=== PATIENT | female | born 1950 | race Caucasian/White ===

== ENCOUNTER 2017-04-17 00:27 | Emergency (ER) | payer MEDICARE ==
[~2017-04-17] VITALS: Ht 167.6 cm; Wt 90.7 kg
[~2017-04-17 00:27] MED LIST: ANASTROZOLE1 MG PO; HYDROCODON-ACE1 EA12 PO; LIPITOR10 MG PO; LOVENOX40 MG/0.4 SC; NEURONTIN300 MG PO; PERCOCET 7.5-31 EACH PO; Z.0.AMITRIPTYLINE H7 PO; Z.0.GABAPENTIN300 MG PO
[2017-04-17] MEDS ORDERED: CYCLOBENZAPRINE HCL 10 MG TAB PO ONE (00:30)
--- OUTSIDE RECORDS SUMMARY | 2017-04-17 00:31 | XMS REPORT | Clinical Summary ---
Author Author [facility] Address Unknown Phone Unavailable Care Team Providers Care Cement And Concrete Plant Worker Name Role Phone Bhupendra Raman MD PCP Allergies Active Allergy Reactions Severity Noted Date Comments Codeine GI Intolerance 01/23/2017 Current Medications Prescription Sig. Disp. Refills Start End Date Status Date anastrozole (ARIMIDEX) 1 TK 1 T PO QD 1 11/05/19 Active mg chemo tablet 17 atorvastatin (LIPITOR) 10 01/15/20 Active MG tablet 17 amitriptyline (ELAVIL) 10 Take 10 mg by mouth Active MG tablet nightly. Active Problems Problem Noted Date Closed fracture of right femur 01/24/2017 Encounters Date Type Specialty Care Team Description 01/24/2017 Documentation Ortho Sports Medicine Joshua Barnett MD 01/23/2017 [facility] General Surgery Haydee Asif, Other closed fracture of - Encounter PA-C right femur, unspecified 01/24/2017 Joshua Block portion of femur, initial MD [place] encounter (Primary Dx) Artemio Barrera DO after 04/16/2016 Social History Tobacco Use Types Packs/Day Years Used Date Current Every Day Smoker Cigarettes 1 Smokeless Tobacco: Never Used Tobacco Cessation: Ready to Quit: No Alcohol Use Drinks/Week oz/Week Comments Yes MARGARITAS Sex Assigned at Date Recorded Not on file Last Filed Vital Signs Vital Sign Reading Time Taken Blood Pressure 184/86 01/24/2017 5:50 PM GREEN BUILDING ARCHITECT Pulse 98 01/24/2017 5:50 PM GREEN BUILDING ARCHITECT Temperature 36.9 C (98.5 F) 01/24/2017 11:37 AM GREEN BUILDING ARCHITECT Respiratory Rate 8 01/24/2017 5:50 PM GREEN BUILDING ARCHITECT Oxygen Saturation 97% 01/24/2017 11:37 AM GREEN BUILDING ARCHITECT Inhaled Oxygen - - Concentration Weight - - Height - - Body Mass Index - - Plan of Treatment Health Maintenance Due Date Last Done Comments PAP SMEAR 1973 COLONOSCOPY 2002 MAMMOGRAM 2002 ZOSTER VACCINE 2012 INFLUENZA VACCINE 10/03/2016 Implants Implanted Type Area Press Loader Device Expiration Model / Identifier Date Serial / Lot Breast Implants Cataract Implants Both Eyes Results * Estimated GFR (01/24/2017 12:02 PM) Component Value Ref Range GFR Non Af Amer >90 mL/min/1.73 m2 GFR Af Amer >90 mL/min/1.73 m2 Comment: Chronic kidney disease: <60 mL/min/1.73m2 Kidney failure: <15 mL/min/1.73m2 The estimated GFR is calculated from the IDMS-traceable Modification of Diet in Renal Disease Equation. The accuracy of the calculation is poor when the creatinine is normal. Calculated values >90 mL/min/1.73m2 are not reported. This equation has not been validated in children (<18 years), women, the elderly (>70 years), or ethnic groups other than Caucasians and Americans. Specimen Performing Laboratory Plasma specimen [facility] DEPARTMENT OF PATHOLOGY AND GENOMIC MEDICINE [address] [place] [address] * Prothrombin time with INR (01/24/2017 12:02 PM) Component Value Ref Range Prothrombin time 13.9 12.0 - 15.0 sec INR 1.1 Comment: The International Normalized Ratio (INR) is a therapeutic monitoring tool for patients who are stable on oral anticoagulant therapy. An INR of 2.0-3.0 is suggested for deep vein thrombosis/pulmonary embolism. Specimen Performing Laboratory Blood [facility] DEPARTMENT OF PATHOLOGY AND [facility] MEDIC[facility] [address] [place] [address] * Comprehensive metabolic panel (01/24/2017 12:02 PM) Component Value Ref Range Sodium 141 135 - 148 mEq/L Potassium 3.2 (L) 3.5 - 5.0 mEq/L Chloride 101 98 - 112 mEq/L CO2 29 24 - 31 mEq/L Anion gap 11 7 - 15 mEq/L Comment: Starting from June , anion gap calculation no longer incorporates potassium. Please note the change. BUN 8 8 - 23 mg/dL Creatinine 0.6 0.5 - 0.9 mg/dL Glucose 133 (H) 65 - 99 mg/dL Calcium 9.0 8.8 - 10.2 mg/dL Protein 6.6 6.3 - 8.3 g/dL Comment: 4.6-7.0 g/dL 1 week 4.4-7.6 g/dL 7 months-1year 5.1-7.3 g/dL 1-2 years 5.6-7.5 g/dL >3 years 6.0-8.0 g/dL 18-150 6.3-8.3 g/dL Albumin 4.2 3.5 - 5.0 g/dL A/G ratio 1.8 0.7 - 3.8 Alkaline phosphatase 86 35 - 104 U/L AST 20 10 - 35 U/L ALT 11 5 - 50 U/L Total bilirubin 0.7 0.0 - 1.2 mg/dL Specimen Performing Laboratory Plasma specimen [facility] DEPARTMENT OF PATHOLOGY AND GENOMIC MEDICINE [address] [place] [address] * XR Hip 2-3 View Right (01/24/2017 12:47 AM) Specimen Performing Laboratory [facility] [address] [place] [address] Narrative EXAMINATION:XR HIP 2-3 VIEWS RIGHT CLINICAL HISTORY:fall COMPARISON:None. IMPRESSION: Patient is status post right hip arthroplasty. Acute fracture of the proximal diaphysis of the right femur. The fracture involves the bone surrounding the distal tip of the femoral component. Soft tissue swelling about the fracture site is seen. [facility]-[id number] Procedure Note Interface, Radiology Results Incoming - 01/24/2017 12:53 AM GREEN BUILDING ARCHITECT EXAMINATION: XR HIP 2-3 VIEWS RIGHT CLINICAL HISTORY: fall COMPARISON: None. IMPRESSION: Patient is status post right hip arthroplasty. Acute fracture of the proximal diaphysis of the right femur. The fracture involves the bone surrounding the distal tip of the femoral component. Soft tissue swelling about the fracture site is seen. [facility]-[id number] after 04/16/2016 Insurance Payer Benefit Subscriber ID Type Phone Address Plan / Group [facility] MEDICARE AARP xxxxxxxxx [facility] [place] MEDICARE [place] [address]
--- OUTSIDE RECORDS SUMMARY | 2017-04-17 00:31 | XMS REPORT ---
[facility] Address Unknown Phone Unavailable Care Team Providers Care Nail Specialist Name Role Phone VONDA CARVER Unavailable Unavailable Problems This patient has no known problems. Allergies, Adverse Reactions, Alerts This patient has no known allergies or adverse reactions. Medications This patient has no known medications. Results Test Description Test Time Test Comments Text Results Atomic Results Result Comments PELVIS AP 1-2 VIEWS [place] [address] Patient Name: SUSHMA SOLIZ MR #: [id number] : 1950 Age/Sex: 66/F Req #: [id number] Adm Physician: VONDA CARVER MD Ordered by: VONDA CARVER MD Report #: [id number] Location: MED/SURG Room/Bed: [facility] Procedure: [id number] DX/PELVIS AP 1-2 VIEWS Exam Date: 01/26/17 Exam Time: 1245 REPORT STATUS: Signed PROCEDURE: X-RAY PELVIS, AP VIEW COMPARISON: None. INDICATIONS: STATUS POST RIGHT HIP SURGERY FINDINGS: Refer to conclusion CONCLUSION: Postsurgical changes of the right hip and proximal femur include total arthroplasty with intact and appropriately positioned acetabular cup and femoral stem components. There is a plate, cerclage wire, and screw construct along the lateral margin of the right femoral diaphysis with overlying skin gold and subcutaneous gas in keeping with recent surgery. Dictated by: Vonda Balderrama M.D. on 01/26/2017 at 13:24 Electronically approved by: Vonda Balderrama M.D. on 01/26/2017 at 13:24 Dictated By: VONDA BALDERRAMA MD 1324 Transcribed By: MACO on 01/26/17 1324 COPY TO: VONDA CARVER MD CHEST SINGLE (PORTABLE) [place] [address] Patient Name: SUSHMA SOLIZ MR #: [id number] : 1950 Age/Sex: 66/F Req #: [id number] Adm Physician: VONDA CARVER MD Ordered by: DOTTIE DÍAZ Report #: [id number] Location: MED/SURG Room/Bed: [facility] Procedure: [id number] DX/CHEST SINGLE (PORTABLE) Exam Date: 01/24/17 Exam Time: 1848 REPORT STATUS: Signed EXAMINATION: CHEST SINGLE (PORTABLE) 01/24/2017 6:37 PM COMPARISON: 08/14/2016 INDICATION: Preoperative evaluation DISCUSSION: LINES: None. LUNGS: The lungs are well inflated and clear. No pneumonia or pulmonary edema. PLEURA: No pleural effusion or pneumothorax. HEART AND MEDIASTINUM: The cardiomediastinal silhouette is unremarkable. BONES AND SOFT TISSUES: No acute osseous lesion. The soft tissues are normal. IMPRESSION: No acute cardiopulmonary disease. Charli Carmen MD Signed by: Dr. Charli Carmen M.D. on 01/24/2017 7: 41 PM Dictated By: CHARLI CARMEN MD 1941 Transcribed By: WILLY on 01/24/171940 COPY TO: DOTTIE DÍAZ FEMUR TWO VIEW MINIMUM RIGHT [place] [address] Patient Name: SUSHMA SOLIZ MR #: [id number] : 1950 Age/Sex: 66/F Req #: [id number] Adm Physician: VONDA CARVER MD Ordered by: DOTTIE DÍAZ Report #: [id number] Location: MED/SURG Room/Bed: [facility] Procedure: [id number] DX/FEMUR TWO VIEW MINIMUM RIGHT Exam Date: Exam Time: REPORT STATUS: Signed EXAMINATION: FEMUR TWO VIEW MINIMUM RIGHT 01/24/2017 6:32 PM COMPARISON: None INDICATION: Right femur fracture DISCUSSION: 2 views of the right femur Status post right hip hemiarthroplasty. There is a spiral fracture of the proximal diaphysis of the right femur with foreshortening and lateral displacement. Moderate degenerative changes of the knee. Trace right knee joint effusion. Soft tissues are unremarkable IMPRESSION: Displaced right femoral fracture as above. Charli Carmen MD Signed by: Dr. Charli Carmen M.D. on 01/24/2017 7:43 PM Dictated By: CHARLI CARMEN MD 42 Transcribed By: WILLY on 01/24/171942 COPY TO: DOTTIE DÍAZ
--- NOTE | 2017-04-17 02:05 | Diagnostic Imaging Report ---
CT PELVIS WO Clinical history: Status post fall, pain of the tailbone Technique: Volumetric CT scan of the pelvis was performed. No intravenous contrast was administered. Coronal sagittal and axial images are generated from source data. Comparison: None Findings: Bones/soft tissues: Streak artifact from partially imaged right hip arthroplasty and femoral hardware partially degrades evaluation. There is a nondisplaced fracture of the left inferior pubic ramus and superior pubic ramus near the anterior acetabular wall. Some callus about the left inferior pubic ramus fracture suggests this could be acute on chronic given history of multiple falls. In addition, there is an essentially nondisplaced fracture through the left hemisacrum. Visualized pelvis: Bladder is distended, fluid-filled. Mild vascular calcifications. Impression: Acute nondisplaced fractures of the left pubic rami and left sacral hemisacrum. Discussed with Physician: MARIEL LAIRD MD at 2:00 AM on 04/17/2017. Signed by: Dr Socorro Singh MD on 04/17/2017 2:01 AM
[2017-04-17] MEDS ORDERED: HYDROCODONE/APAP 5MG-325MG TAB PO ONE (02:45)
[2017-04-18] MEDS ORDERED: BUPROPION XL150 MG PO (11:16)
[2017-04-18] MEDS ORDERED: ULTRAM50 MG PO (11:16)
[2017-04-18] MEDS ORDERED: NORCO 10-325 T1 EACH PO (11:16)
[2017-04-18] MEDS ORDERED: CYCLOBENZAPRINE10 MG PO (11:16)
[2017-04-18] MEDS ORDERED: IBUPROFEN400 MG PO (11:16)
== END 2017-04-17 03:16 | disposition home or self-care (01) ==
LOC: ER 00:27
DX: S32.592A Other specified fracture of left pubis, initial encounter for closed fracture (principal); S32.19XA Other fracture of sacrum, initial encounter for closed fracture; W18.39XA Other fall on same level, initial encounter; Y93.01 Activity, walking, marching and hiking; Y92.008 Other place in unspecified non-institutional (private) residence as the place of occurrence of the external cause
CPT/HCPCS: 72192; 99283

== ENCOUNTER 2017-04-18 10:36 | Observation (INO) | payer MEDICARE ==
[~2017-04-18] VITALS: Ht 172.7 cm; Wt 80.0 kg
--- OUTSIDE RECORDS SUMMARY | 2017-04-18 10:40 | XMS REPORT | Continuity of Care Document ---
Author Author [facility] Organization [facility] Address [address] [place] [address] Phone Unavailable Care Team Providers Care Assistant Professor Nurse Education Name Role Phone WARD SAUNDERS MD PCP Insurance Providers Guarantor Sushma Rivers Address [address] [place] [address] Email [email or web address] Payer [employer] Medicare Complete Policy Number [id number] Subscriber's Name TitaSushma Mullins Relationship 18 Self / Same As Patient Group Number [id number] Group Name RETIRED Effective Date 17 Advance Directives Directive Response Recorded Date/Time Does the patient have an advance directive? No 01/24/17 4:28pm If yes, is advance directive on file with [facility]? No 02/19/12 12:05pm If not on file with [facility] will patient provide a copy? No 02/19/12 12:05pm Do you have a Directive to Physician? No 04/17/17 1:26am Do you have a Medical Power of Doctor Naturopathic? No 04/17/17 1:26am Do you have an out of hospital Do Not Resuscitate Order? No 04/17/17 1:26am Do you have any special needs we should be aware of? No 04/17/17 1:26am Do you have a support person here with you today? No 04/17/17 1:26am Did patient receive Notice of Privacy Practices? Yes 04/17/17 1:26am Did patient receive patient rights and responsibilities? Yes 04/17/17 1:26am Problems No problem information available. Medications Current Home Medications Medication Dose Units Route Directions Days Qty Instructions Start Date Amitriptyline Hcl 75 Mg Tablet 75 Mg Oral Bedtime Anastrozole 1 Mg Tablet 1 Mg Oral Daily Atorvastatin Calcium (Lipitor*) 10 Mg Tablet 10 Mg Oral Bedtime Enoxaparin Sodium (Lovenox) 40 Mg/0.4 Ml Inj Mg Subcutaneously Daily 14 Days Gabapentin (Neurontin) 300 Mg Capsule 300 Mg Oral Daily as needed for Pain Past Home Medications Medication Directions Ordered Status Gabapentin 300 Mg Capsule, 300 Mg Oral 3-4 Times Daily Discontinued Hydrocodone Bit/Acetaminophen (Hydrocodon-Acetaminoph 7.5-325) 1 Each Tablet, Oral as needed Discontinued Oxycodone Hcl/Acetaminophen (Percocet 7.5-325 Mg Tablet) 1 Each Tablet, Mg Oral Every 4 Hours as needed Discontinued Social History Social History Problem Response Recorded Date/Time Onset Date Status Hx Psychiatric Problems No 01/24/2017 4:28pm Not Applicable Not Applicable Hx Eating Disorder No 01/24/2017 4:28pm Not Applicable Not Applicable Hx Substance Use Disorder No 01/24/2017 4:28pm Not Applicable Not Applicable Hx Depression No 01/24/2017 4:28pm Not Applicable Not Applicable Hx Alcohol Use No 01/24/2017 4:28pm Not Applicable Not Applicable Hx Substance Use Treatment No 01/24/2017 4:28pm Not Applicable Not Applicable Hx Physical Abuse No 01/24/2017 4:28pm Not Applicable Not Applicable Smoking Status Start Date Stop Date Current every day smoker Hospital Discharge Instructions No hospital discharge instruction information available. Plan of Care Discharge Date 04/17/17 3:16am Disposition HOME, SELF-CARE Condition at Discharge Stable Instructions/Education Provided Contusion Fractures Forms Provided Work/School Excuse Prescriptions See Medication Section Additional Instructions/Education FOLLOW UP WITH YOUR ORTHOPEDIC IN 1 WEEK EVEN IF WELL NO STRENUOUS ACTIVITY YOU MAY WALK AND BEAR WEIGHT TOLERATED LEFT LEG Functional Status No functional status information available. Allergies, Adverse Reactions, Alerts Allergen Type Severity Reaction Status Last Updated Codeine Allergy Mild SEVERE N/V Active 10/27/11 Hydromorphone Adverse Reaction Unknown Active 01/25/17 Immunizations No immunization information available. Vital Signs Acute Vital Signs Vital Response Date/Time Temperature (Fahrenheit) 98.1 degrees F (97.6 - 99.5) 01/29/2017 12:28pm Pulse Pulse Rate (adult) 99 bpm (60 - 90) 01/29/2017 12:28pm Respiratory Rate 16 bpm (12 - 24) 01/29/2017 12:28pm Blood Pressure 113/59 mm Hg 01/29/2017 12:28pm Height 5 ft 6 in 04/17/2017 12:30am Weight 200 lb 04/17/2017 12:30am Body Mass Index 32.3 kg/m^2 04/17/2017 12:30am Results Laboratory Results Test Name Result Units Flags Reference Collection Date/Time Result Date/ Time Comments White Blood Count 13.90 x10e3/uL H 4.8-10.8 01/28/2017 7:05am 2016 9:29am Red Blood Count 3.10 x10e6/uL L 3.6-5.1 01/28/2017 7:05am 01/28/2017 9: 29am Hemoglobin 9.9 g/dL L 12.0-16.0 01/28/2017 7:05am 01/28/2017 9:29am Hematocrit 30.0 % L 34.2-44.1 01/28/2017 7:05am 01/28/2017 9:29am Mean Corpuscular Volume 96.8 fL # 81-99 01/28/2017 7:05am 01/28/2017 9: 29am Mean Corpuscular Hemoglobin 31.9 pg 28-32 01/28/2017 7:05am 01/28/2017 9:29am Mean Corpuscular Hemoglobin Concent 33.0 g/dL 31-35 01/28/2017 7:05am 01/28/2017 9:29am Red Cell Distribution Width 19.8 % # H 11.7-14.4 01/28/2017 7:05am 2016 9:29am Platelet Count 327 x10e3/uL 140-360 01/28/2017 7:05am 01/28/2017 9: 29am Neutrophils (%) (Auto) 70.2 % 38.7-80.0 01/28/2017 7:05am 01/28/2017 9: 29am Lymphocytes (%) (Auto) 11.7 % L 18.0-39.1 01/28/2017 7:05am 01/28/2017 9 :29am Monocytes (%) (Auto) 12.7 % H 4.4-11.3 01/28/2017 7:05am 01/28/2017 9: 29am Eosinophils (%) (Auto) 3.9 % 0.0-6.0 01/28/2017 7:05am 01/28/2017 9: 29am Basophils (%) (Auto) 0.6 % 0.0-1.0 01/28/2017 7:05am 01/28/2017 9:29am IM GRANULOCYTES % 0.9 % 0.0-1.0 01/28/2017 7:05am 01/28/2017 9:29am Neutrophils # (Auto) 9.8 H 2.1-6.9 01/28/2017 7:05am 01/28/2017 9: 29am Lymphocytes # (Auto) 1.6 1.0-3.2 01/28/2017 7:05am 01/28/2017 9:29am Monocytes # (Auto) 1.8 H 0.2-0.8 01/28/2017 7:05am 01/28/2017 9:29am Eosinophils # (Auto) 0.5 H 0.0-0.4 01/28/2017 7:05am 01/28/2017 9: 29am Basophils # (Auto) 0.1 0.0-0.1 01/28/2017 7:05am 01/28/2017 9:29am Absolute Immature Granulocyte (auto 0.12 x10e3/uL H 0-0.1 01/28/2017 7: 05am 01/28/2017 9:29am Differential Total Cells Counted 100 01/27/2017 6:20am 01/27/2017 10:41am Neutrophils % (Manual) 74 % 40-74 01/27/2017 6:20am 01/27/2017 10:41am Band Neutrophils % 1 % 01/25/2017 5:55am 01/25/2017 10:41am Lymphocytes % (Manual) 11 % L 19-48 01/27/2017 6:20am 01/27/2017 10: 41am Monocytes % (Manual) 15 % H 3.4-9.0 01/27/2017 6:20am 01/27/2017 10: 41am Eosinophils % (Manual) 1 % 0-7 01/25/2017 5:55am 01/25/2017 10:41am Metamyelocytes % 1 % H 0-0 01/25/2017 5:55am 01/25/2017 10:41am Platelet Estimate ADEQUATE 01/27/2017 6:20am 01/27/2017 10:41am Platelet Morphology Comment NORMAL 01/27/2017 6:20am 01/27/2017 10: 41am Anisocytosis SLIGHT 01/25/2017 5:55am 01/25/2017 10:41am Macrocytosis MODERATE 01/25/2017 5:55am 01/25/2017 10:41am Red Cell Morphology Comment NORMAL 01/27/2017 6:20am 01/27/2017 10: 41am Prothrombin Time 14.1 seconds 11.9-14.5 01/25/2017 5:55am 01/25/2017 6: 58am Prothromb Time International Ratio 1.04 01/25/2017 5:55am 2016 6:58am Oral Anticoagulant Therapy INR Values: 1. Low Intensity Therapy 1.5 - 2.0 2. Moderate Intensity Therapy 2.0 - 3.0 3. High Intensity Therapy(1) 2.5 - 3.5 4. High Intensity Therapy(2) 3.0 - 4.0 5. Panic Value INR > 5.0 Activated Partial Thromboplast Time 29.5 seconds 23.8-35.5 01/25/2017 5: 55am 01/25/2017 6:58am Sodium Level 136 mmol/L 136-145 01/28/2017 7:05am 01/28/2017 7:59am Potassium Level 4.2 mmol/L 3.5-5.1 01/28/2017 7:05am 01/28/2017 7:59am Chloride Level 101 mmol/L 98-107 01/28/2017 7:05am 01/28/2017 7:59am Carbon Dioxide Level 28 mmol/L 22-01/28/2017 7:05am 01/28/2017 7: 59am Anion Gap 11.2 mmol/L 8-16 01/28/2017 7:05am 01/28/2017 7:59am Blood Urea Nitrogen 10 mg/dL 7-01/28/2017 7:05am 01/28/2017 7:59am Creatinine 0.71 mg/dL 0.57-1.11 01/28/2017 7:05am 01/28/2017 7:59am BUN/Creatinine Ratio 14 6-25 01/28/2017 7:05am 01/28/2017 7:59am Estimat Glomerular Filtration Rate > 60 ML/MIN 60- 01/28/2017 7:05am 7:59am Ranges were taken from the National Kidney Disease Education Program and the National Kidney Foundation literature. Reference ranges: 60 or greater: Normal 16-59 (for 3 consecutive months): Chronic kidney disease 15 or less: Kidney failure Glucose Level 91 mg/dL 74-118 01/28/2017 7:05am 01/28/2017 7:59am Calcium Level 8.9 mg/dL 8.4-10.2 01/28/2017 7:05am 01/28/2017 7:59am Total Bilirubin 0.9 mg/dL 0.2-1.2 01/25/2017 5:55am 01/25/2017 7:22am Aspartate Amino Transf (AST/SGOT) 18 IU/L 5-34 01/25/2017 5:55am 2016 7:22am Alanine Aminotransferase (ALT/SGPT) 12 IU/L 0-55 01/25/2017 5:55am 7:22am Total Protein 6.5 g/dL 6.5-8.1 01/25/2017 5:55am 01/25/2017 7:22am Albumin 3.4 g/dL L 3.5-5.0 01/25/2017 5:55am 01/25/2017 7:22am Globulin 3.1 g/dL 2.3-3.5 01/25/2017 5:55am 01/25/2017 7:22am Albumin/Globulin Ratio 1.1 0.8-2.0 01/25/2017 5:55am 01/25/2017 7: 22am Alkaline Phosphatase 83 IU/L 40-150 01/25/2017 5:55am 01/25/2017 7: 22am Procedures Procedure Status Date Provider(s) REPOSITION RIGHT FEMORAL SHAFT WITH INT FIX, OPEN APPROACH Completed VONDA CARVER MD TRANSFUSE NONAUT RED BLOOD CELLS IN PERIPH VEIN, PERC Completed 01/27/17 VONDA CARVER MD X-ray of chest, two views Active 08/14/16 WARD SAUNDERS MD Computed tomography of pelvis without contrast Active 04/17/17 MARIEL LAIRD MD Encounters Encounter Location Arrival/Admit Date Discharge/Depart Date Attending Provider Departed Emergency Room [facility] 04/17/17 12:27am 04/17 3:16am MARIEL LAIRD MD Discharged Inpatient [facility] 01/24/17 3:54pm 01/29/17 2:45pm VONDA CARVER MD Registered Clinic [facility] 08/14/16 7:21am WARD SAUNDERS MD Registered Clinic [facility] 07/12/16 8:53am FRANKLIN AUSTIN MD
--- OUTSIDE RECORDS SUMMARY | 2017-04-18 10:40 | XMS REPORT | Clinical Summary ---
Author Author [facility] Address Unknown Phone Unavailable Care Team Providers Care Arabic Teacher Name Role Phone Bhupendra Raman MD PCP [...] Ortho Sports Medicine Joshua Barnett MD 01/23/2017 [facility] General Surgery Haydee Asif, Other closed fracture of - Encounter PA-C right femur, unspecified 01/24/2017 Joshua Block portion of femur, initial MD [place] encounter (Primary Dx) Artemio Barrera DO after 04/17/2016 Social History Tobacco Use Types Packs/Day Years Used Date Current Every Day Smoker Cigarettes 1 Smokeless Tobacco: Never Used Tobacco Cessation: Ready to Quit: No Alcohol Use Drinks/Week oz/Week Comments Yes MARGARITAS Sex Assigned at Date Recorded Not on file Last Filed Vital Signs Vital Sign Reading Time Taken Blood Pressure 184/86 01/24/2017 5:50 PM AUTOMOTIVE ELECTRICIAN Pulse 98 01/24/2017 5:50 PM AUTOMOTIVE ELECTRICIAN Temperature 36.9 C (98.5 F) 01/24/2017 11:37 AM AUTOMOTIVE ELECTRICIAN Respiratory Rate 8 01/24/2017 5:50 PM AUTOMOTIVE ELECTRICIAN Oxygen Saturation 97% 01/24/2017 11:37 AM AUTOMOTIVE ELECTRICIAN Inhaled Oxygen - - Concentration Weight - - Height - - Body Mass Index - - Plan of Treatment Health Maintenance Due Date Last Done Comments PAP SMEAR 1973 COLONOSCOPY 2002 MAMMOGRAM 2002 ZOSTER VACCINE 2012 INFLUENZA VACCINE 10/03/2016 Implants Implanted Type Area Vice Chancellor Device Expiration Model / Identifier Date Serial [...] and Americans. Specimen Performing Laboratory Plasma specimen [facility] DEPARTMENT OF PATHOLOGY AND GENOMIC MEDICINE [address] [place] [address] * Prothrombin time with INR (01/24/2017 12:02 PM) Component Value Ref Range Prothrombin time 13.9 12.0 - 15.0 sec INR 1.1 Comment: The International Normalized Ratio (INR) is a therapeutic monitoring tool for patients who are stable on oral anticoagulant therapy. An INR of 2.0-3.0 is suggested for deep vein thrombosis/pulmonary embolism. Specimen Performing Laboratory Blood [facility] DEPARTMENT OF PATHOLOGY AND [facility] MEDICINE [address] [place] [address] * Comprehensive metabolic panel (01/24/2017 12:02 PM) [...] 1.2 mg/dL Specimen Performing Laboratory Plasma specimen [facility] DEPARTMENT OF PATHOLOGY AND GENOMIC MEDICINE [address] [place] [address] * XR Hip 2-3 View Right (01/24/2017 12:47 AM) Specimen Performing Laboratory [facility] [address] [place] [address] Narrative EXAMINATION:XR HIP 2-3 VIEWS RIGHT CLINICAL HISTORY:fall COMPARISON:None. IMPRESSION: Patient is status post right hip arthroplasty. Acute fracture of the proximal diaphysis of the right femur. The fracture involves the bone surrounding the distal tip of the femoral component. Soft tissue swelling about the fracture site is seen. [facility]-[id number] Procedure Note Interface, Radiology Results Incoming - 01/24/2017 12:53 AM AUTOMOTIVE ELECTRICIAN EXAMINATION: XR HIP 2-3 VIEWS RIGHT CLINICAL HISTORY: fall COMPARISON: None. IMPRESSION: Patient is status post right hip arthroplasty. Acute fracture of the proximal diaphysis of the right femur. The fracture involves the bone surrounding the distal tip of the femoral component. Soft tissue swelling about the fracture site is seen. [facility]-[id number] after 04/17/2016 Insurance Payer Benefit Subscriber ID Type Phone Address Plan / Group [place] MEDICARE AARP xxxxxxxxx [facility] [place] [address]
[2017-04-18] MEDS ORDERED: ONDANSETRON HCL INJ 2 MG/ML VIAL IV STA (10:43)
[2017-04-18] MEDS ORDERED: SODIUM CHLORIDE 0.9% 500ML 500 ML IV STA (10:43)
[2017-04-18] MEDS ORDERED: MORPHINE SULFATE 2 MG/ML SYR IV ONE (11:00)
[2017-04-18] MEDS ORDERED: ONDANSETRON HCL INJ 2 MG/ML VIAL IV PRN (11:15)
[2017-04-18] MEDS ORDERED: MORPHINE SULFATE 2 MG/ML SYR IV PRN (11:15)
[2017-04-18] MEDS ORDERED: CYCLOBENZAPRINE10 MG PO (11:16)
[2017-04-18] MEDS ORDERED: BUPROPION XL150 MG PO (11:16)
[2017-04-18] MEDS ORDERED: IBUPROFEN400 MG PO (11:16)
[2017-04-18] MEDS ORDERED: NORCO 10-325 T1 EACH PO (11:16)
[2017-04-18] MEDS ORDERED: ULTRAM50 MG PO (11:16)
[2017-04-18] MEDS: SODIUM CHLORIDE 0.9% 1000ML 1,000 ML IV SCH ×2 (11:26→16:20)
--- OUTSIDE RECORDS SUMMARY | 2017-04-18 11:28 | XMS REPORT | Clinical Summary ---
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 Specimen Performing Laboratory Plasma specimen [facility] DEPARTMENT OF PATHOLOGY AND GENOMIC MEDICINE [address] [place] [address] * Prothrombin time with INR (01/24/2017 12:02 PM) Component Value Ref Range Prothrombin time 13.9 12.0 - 15.0 sec INR 1.1 Comment: The International Normalized Ratio (INR) is a therapeutic monitoring tool for patients who are stable on oral anticoagulant therapy. An INR of 2.0-3.0 is suggested for deep vein thrombosis/pulmonary embolism. Specimen Performing Laboratory Blood [facility] DEPARTMENT OF PATHOLOGY AND [facility] MEDICINE [address] [place] [address] * Comprehensive metabolic panel (01/24/2017 12:02 PM) [...] 1.2 mg/dL Specimen Performing Laboratory Plasma specimen [facility] DEPARTMENT OF PATHOLOGY AND GENOMIC MEDICINE [address] [place] [address] * XR Hip 2-3 View Right (01/24/2017 12:47 AM) Specimen Performing Laboratory [facility] [address] [place] [address] Narrative EXAMINATION:XR HIP 2-3 VIEWS RIGHT CLINICAL HISTORY:fall COMPARISON:None. IMPRESSION: Patient is status post right hip arthroplasty. Acute fracture of the proximal diaphysis of the right femur. The fracture involves the bone surrounding the distal tip of the femoral component. Soft tissue swelling about the fracture site is seen. 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 IMPRESSION: Patient is status post right hip arthroplasty. Acute fracture of the proximal diaphysis of the right femur. The fracture involves the bone surrounding the distal tip of the femoral component. Soft tissue swelling about the fracture site is seen. [facility]-[id number] after 04/17/2016 Insurance Payer Benefit Subscriber ID Type Phone Address Plan / Group [facility] MEDICARE AARP xxxxxxxxx [facility] [place] [facility] MEDICARE COMPLETE [facility] [place] [address]
[2017-04-18 11:36] LABS: BASOPHILS # (AUTO) 0.1 (0.0-0.1); BASOPHILS % 0.5 % (0.0-1.0); EOSINOPHILS # (AUTO) 0.2 (0.0-0.4); EOSINOPHILS % 1.5 % (0.0-6.0); HEMATOCRIT 32.7 % (34.2-44.1); HEMOGLOBIN 10.6 g/dL (12.0-16.0); LYMPHOCYTES # (AUTO) 1.2 (1.0-3.2); LYMPHOCYTES % 8.8 % (18.0-39.1); MEAN CORPUSCULAR HEMOGLOBIN 31.5 pg (28-32); MEAN CORPUSCULAR HGB CONC 32.4 g/dL (31-35); MONOCYTES # (AUTO) 1.5 (0.2-0.8); MONOCYTES % 11.4 % (4.4-11.3); NEUTROPHILS # (AUTO) 10.1 (2.1-6.9); NEUTROPHILS % 77.1 % (38.7-80.0); PLATELET COUNT 311 x10e3/uL (140-360); RED BLOOD COUNT 3.37 x10e6/uL (3.6-5.1); RED CELL DISTRIBUTION WIDTH 19.2 % (11.7-14.4)
[2017-04-18 11:37] LABS: BILIRUBIN,URINE NEGATIVE (NEGATIVE); CLARITY,URINE CLEAR (CLEAR); COLOR,URINE YELLOW (YELLOW); KETONES,URINE NEGATIVE (NEGATIVE); LEUKOCYTE ESTERASE ,URINE NEGATIVE (NEGATIVE); NITRITE,URINE NEGATIVE (NEGATIVE); PROTEIN,URINE DIPSTICK NEGATIVE (NEGATIVE); URINE UROBILINOGEN 0.2 mg/dL (0.2 - 1)
[2017-04-18 11:54] LABS: ALANINE AMINOTRANSFERASE 21 IU/L (0-55); ALBUMIN 3.5 g/dL (3.5-5.0); ALKALINE PHOSPHATASE 87 IU/L (40-150); ANION GAP 13.6 mmol/L (8-16); BLOOD UREA NITROGEN 8 mg/dL (7-26); BUN/CREATININE RATIO 11 (6-25); CALCIUM 8.2 mg/dL (8.4-10.2); CARBON DIOXIDE 26 mmol/L (22-29); CHLORIDE 99 mmol/L (98-107); EST GLOMERULAR FILTRATION RATE > 60 ML/MIN (60-); GLUCOSE 110 mg/dL (74-118); POTASSIUM 3.6 mmol/L (3.5-5.1); SODIUM 135 mmol/L (136-145)
--- NOTE | 2017-04-18 12:13 | Diagnostic Imaging Report ---
EXAMINATION: Head CT HISTORY: Status post fall, evaluate for injury. COMPARISON: None. TECHNIQUE: Multidetector axial images were obtained without contrast from the foramen magnum to the vertex . The images were reconstructed using brain and bone algorithms. Thin section brain images were reformatted into coronal and sagittal planes. Intravenous contrast: None. Motion/streaking artifact limits the evaluation of the skull base and posterior cranial fossa. FINDINGS: Parenchyma: 1. Few scattered pulmonary hypodensities, most likely nonspecific chronic microvascular ischemic changes. 2. No mass or hemorrhage. No CT evidence of acute territorial vascular insult. Extra-axial spaces:No abnormal density. No extra-axial fluid collections Brain volume: Normal for age. Ventricles: No hydrocephalus or displacement. Arteries: No density suggestive of thrombus. Dural sinuses: No abnormal density. Extra-axial spaces: No abnormal density. Foramen magnum: No mass, Chiari malformation, or basilar invagination. Sella: No obvious mass. Paranasal/mastoid sinuses: Imaged portions unremarkable. Skull/Scalp: No lytic or blastic lesions. No fractures. IMPRESSION: 1. No acute intracranial abnormalities, particularly no hemorrhage. 2. Mild chronic microvascular ischemic changes. Signed by: Dr. Madhuri Cohen M.D. on 04/18/2017 12:09 PM
[2017-04-18 12:19] LABS: AMORPHOUS SEDIMENT,URINE FEW (FEW); EPITHELIAL CELLS,URINE RARE /LPF
[2017-04-18 15:15] VITALS: BP 139/67
[2017-04-18 15:42] VITALS: BP 139/67
[2017-04-18] MEDS ORDERED: INFLUENZA VIRUS VAC SPLIT INJ 0.5 ML SYR IM SCH (16:30)
[2017-04-18 18:05] VITALS: BP 139/67
[2017-04-18 20:00] VITALS: BP_SYST 148; BP_SYST 176; BP_DIAS 77; BP_DIAS 86
[2017-04-19] VITALS: BP 176/86
[2017-04-19] MEDS: SODIUM CHLORIDE 0.9% 1000ML 1,000 ML IV SCH ×2 (03:02→12:34)
[2017-04-19 04:00] VITALS: BP 168/79
[2017-04-19] MEDS ORDERED: HYDROCODONE/APAP 5MG-325MG TAB PO PRN (07:00)
[2017-04-19] MEDS ORDERED: GABAPENTIN 300 MG CAP PO PRN (07:00)
[2017-04-19 08:43] VITALS: BP 153/81
[2017-04-19] MEDS: CYCLOBENZAPRINE HCL 10 MG TAB PO SCH ×2 (08:53→16:52)
[2017-04-19] MEDS: OYST-CAL-D 500MG TABLET PO SCH ×2 (08:54→16:52)
[2017-04-19] MEDS ORDERED: NICOTINE 21 MG/EA PATCH TOP SCH (09:00)
--- NOTE | 2017-04-19 09:07 | History and Physical ---
PRIMARY CARE PHYSICIAN: Dr. Neptali Raman CHIEF COMPLAINT: Pelvic pain. HISTORY OF PRESENT ILLNESS: A 66-year-old woman who had a fall in January with right hip fracture, underwent surgical management by Dr. Wills, now again patient falling after walking, got tied up in some material outside her home and fallen, came to the hospital. Imaging, CT scan on the 17 of April showed acute nondisplaced fracture of the left pubic rami and left hemisacrum. Patient was sent home with medication, but due to severity of pain and inability to get upstairs, she came back to the hospital for management. Currently, her pain is about 5/10. Denies any chest pain or shortness of breath. PAST MEDICAL HISTORY: Right-sided breast [id number] status post lumpectomy, cigarette abuse, hyperlipidemia, avascular necrosis of the right hip. PAST SURGICAL HISTORY: Right hip replacement, right lumpectomy, breast augmentation. ALLERGIES: PER ELECTRONIC MEDICAL RECORD. FAMILY HISTORY/SOCIAL HISTORY: Patient is single. She has 2 children. Occasional alcohol. Smokes one-half pack of cigarette per day. MEDICATIONS: Per electronic medical record. REVIEW OF SYSTEMS: Denies any dizziness, chest pain. PHYSICAL EXAMINATION: VITAL SIGNS: Have been reviewed. GENERAL APPEARANCE: Tired-appearing woman resting in bed. HEENT: Anicteric. Pupils respond to light. No oral lesions. CARDIOVASCULAR: Normal S1 and S2. LUNGS: Moderate breath sounds. ABDOMEN: Soft, nontender, nondistended. EXTREMITIES: She has some pelvic pain and discomfort, but no bruising is visible. No edema or calf tenderness. NEUROLOGICAL: Alert and oriented x2. She moves all extremities. SKIN: Dry. PSYCHIATRIC: Flat affect. LABS: Reviewed. MEDICATIONS: Reviewed. ASSESSMENT AND PLAN: A 66-year-old woman. 1. Pelvic fracture. Here for pain control and physical therapy. Inability to get upstairs, and uncontrolled pain at home. She will need skilled facility placement. Discussed Branch with the patient and she is willing to hear more details. 2. Pelvic pain. P.r.n. pain medication. 3. Cigarette abuse. Counseled on cessation. May start nicotine patch. Definitely contributes to patient's recurrent fractures. Patient likely has osteoporosis. 4. Gait dysfunction. Physical therapy, skilled facility evaluation. 5. Likely osteoporosis. We will start patient on treatment now. Will also start calcium and vitamin D. She can obtain a DEXA scan at a later date. 6. Leukocytosis. Her urinalysis is negative for any signs of infection. This may just be marginalization of the leukocytes. We will reassess tomorrow. 7. Normocytic anemia, mild to moderate. We will follow. Will obtain a vitamin B12 level in light of the patient's recurrent falls. Will also obtain a thyroid-stimulating hormone. 8. Prophylaxis. Will just use Lovenox 40 daily. 9. Disposition. Physical therapy and shelter facility evaluation. Pain control. Start Fosamax for presumed osteoporosis. Job#: [id number]
[2017-04-19 12:00] VITALS: BP 153/81
[2017-04-19 12:28] VITALS: BP 148/77
[2017-04-19] MEDS: TRAMADOL HCL 50 MG TAB PO PRN ×2 (12:34→18:07)
[2017-04-19 16:48] VITALS: BP 121/61
[2017-04-19] MEDS ORDERED: ENOXAPARIN SOD INJ 40 MG/0.4 ML SYR SC SCH (17:00)
[2017-04-19] MEDS ORDERED: ATORVASTATIN 10 MG TAB PO SCH (21:00)
[2017-04-26] MEDS ORDERED: ALENDRONATE SODIUM 70 MG TAB PO SCH (06:30)
== END 2017-04-19 19:05 ==
LOC: ER 10:36 → ERHOLD 11:25 → IMCU 15:07
PROVIDERS: ADMIT Internal Medicine; ATTEND Internal Medicine
DX: S32.592A Other specified fracture of left pubis, initial encounter for closed fracture (principal); S32.10XA Unspecified fracture of sacrum, initial encounter for closed fracture; Z72.0 Tobacco use; R26.89 Other abnormalities of gait and mobility; D72.829 Elevated white blood cell count, unspecified; D64.9 Anemia, unspecified; Z91.81 History of falling; E78.5 Hyperlipidemia, unspecified; Z96.641 Presence of right artificial hip joint; Z85.3 Personal history of malignant neoplasm of breast; Z88.5 Allergy status to narcotic agent
CPT/HCPCS: 36415 ×2; 51700; 70450; 80053; 81001; 82607; 84443; 85025; 87086; 97162; 99284; G0378 ×2; G8978; G8979; G8980; J1650; J2270; J2405; J7030 ×2; J7040

== ENCOUNTER → 2017-05-28 | Outpatient (CLI) | payer MEDICARE ==
[~2017-05-28] MED LIST changes: +BUPROPION XL150 MG PO; +CYCLOBENZAPRINE10 MG PO; +IBUPROFEN400 MG PO; +NORCO 10-325 T1 EACH PO; +ULTRAM50 MG PO
--- NOTE | 2017-05-28 11:56 | Diagnostic Imaging Report ---
EXAM: DXA BONE DENSITY INDICATIONS: Pain in left hip/ fractured rt femur COMPARISON: None. FINDINGS: Proximal left femur bone mineral density (BMD) (g/cm2):0.640 Femur T-score (standard deviation relative to young adult mean BMD): -2.5 Femur Z-score (standard deviation relative to age-matched control group):-1.3 Lumbar bone mineral density (BMD) (g/cm2):0.882 Lumbar T-score (standard deviation relative to young adult mean BMD): 1.5 Lumbar Z-score (standard deviation relative to age-matched control group):0.3 Change since prior exam (%): Femur:Not applicable. Spine:Not applicable. Change since oldest prior exam (%): Femur:Not applicable. Spine:Not applicable. CONCLUSION: 1. Bone mineral density in the left femur is classified as osteoporosis. Fracture risk is significant. 2. Bone mineral density in the spine is classified as osteopenia. Fracture risk is moderate. World Health Organization Classification: *The Z-score is provided for informational purposes. The T-score is preferable for clinical decisions. When comparing exams, a change of >4% is considered statistically significant. SUGGESTED RECOMMENDATIONS: Normal \T\ Osteopenia:Consideration should be given to use of calcium supplementation, daily multiple vitamins and adequate exercise, as preventive measures against osteoporosis, if clinically indicated. Osteoporosis \T\ Severe Osteoporosis:In addition to the above, consideration should be given to medical therapy against osteoporosis, if clinically indicated. Dictated by: Wilner Smith M.D. on 05/28/2017 at 11:56 Electronically approved by: Wilner Smith M.D. on 05/28/2017 at 11:56
== END ==
LOC: DX 10:24
PROVIDERS: ATTEND Family Medicine
DX: M25.552 Pain in left hip (principal); Z13.820 Encounter for screening for osteoporosis
CPT/HCPCS: 77080

== ENCOUNTER → 2017-09-14 | Outpatient (CLI) | payer MEDICARE | LOC: MAMMO 12:08 | PROVIDERS: ATTEND Internal Medicine Hematology & Oncology | DX: C50.911 Malignant neoplasm of unspecified site of right female breast (principal) | CPT/HCPCS: 77066 ==

== ENCOUNTER → 2018-01-28 | Outpatient (CLI) | payer MEDICARE ==
--- NOTE | 2018-01-28 16:52 | Diagnostic Imaging Report ---
EXAM: XR CHEST 2 VIEWS DATE: 01/28/2018 12:00 AM INDICATION: Bronchitis COMPARISON: None FINDINGS: Lines and Tubes: None Heart and Mediastinum: No acute cardiomediastinal findings. Lungs and Pleura: Minimal bronchial wall thickening only identified. Streaky opacities lung bases with no focal consolidation. Bones and Soft Tissues: No acute findings. IMPRESSION: 1. Minimal perihilar bronchial wall thickening can be seen in the setting of bronchitis. No focal consolidation. Signed by: Dr. Ayden Garcia MD on 01/28/2018 4:49 PM
== END ==
LOC: RAD 16:07
PROVIDERS: ATTEND Family Medicine
DX: J20.9 Acute bronchitis, unspecified (principal)
CPT/HCPCS: 71046

== ENCOUNTER → 2019-02-18 | Outpatient (CLI) | payer MEDICARE ==
--- NOTE | 2019-03-06 10:01 | Diagnostic Imaging Report ---
#[id number] - MGSCRBIL #BILATERAL DIGITAL SCREENING MAMMOGRAM WITH CAD: 02/18/2019 CLINICAL: Routine screening. Comparison is made to exams dated: 09/14/2017 mammogram, 07/12/2016 mammogram and 06/15/2015 mammogram - [facility]. There are scattered fibroglandular elements in both breasts. Current study was also evaluated with a Computer Aided Detection (CAD) system. There is a benign mass, an intramammary node and a nodule in the left breast. There also are post operative findings in the right breast. Bilateral breast implants are stable. No significant masses, calcifications, or other findings are seen in either breast. There has been no significant interval change. IMPRESSION: BENIGN There is no mammographic evidence of malignancy. A 1 year screening mammogram is recommended. The patient will be notified by letter of the results. PETER gruber/zelda:03/04/2019 15:36:25 [facility] Painter: Verónica MCKNIGHT(Bhupendra)(Elsi), [facility] letter sent: Compared to Prior B9 Mammogram BI-RADS: 2 Benign
== END ==
LOC: MAMMO 09:41
PROVIDERS: ATTEND Family Medicine
DX: Z12.31 Encounter for screening mammogram for malignant neoplasm of breast (principal)
CPT/HCPCS: 77067

== ENCOUNTER → 2021-03-14 | Outpatient (CLI) | payer MEDICARE | LOC: MAMMO 09:06 | PROVIDERS: ATTEND Internal Medicine | DX: Z12.31 Encounter for screening mammogram for malignant neoplasm of breast (principal) | CPT/HCPCS: 77067 ==

== ENCOUNTER → 2021-03-23 | Outpatient (CLI) | payer MEDICARE | LOC: DX 09:03 | PROVIDERS: ATTEND Internal Medicine | DX: M85.88 Other specified disorders of bone density and structure, other site (principal) | CPT/HCPCS: 77080 ==

== ENCOUNTER → 2024-09-03 | Outpatient (REF) | payer MEDICARE | LOC: MAMMO 09:13 | PROVIDERS: ATTEND Internal Medicine | DX: Z12.31 Encounter for screening mammogram for malignant neoplasm of breast (principal) | CPT/HCPCS: 77067 ==